=== PATIENT | female | born 1990 | race African-American/Black ===

== ENCOUNTER 2020-08-22 14:03 | Inpatient (IN) | payer MEDICAID ==
[~2020-08-22] VITALS: Ht 162.6 cm; Wt 115.2 kg
[2020-08-22] MEDS ORDERED: PREN1TAB78 MT (15:55)
[2020-08-22] MEDS ORDERED: FERR325T6 MT (15:55)
[2020-08-22] MEDS ORDERED: METHYLERGONOVINE MALEATE 0.2 MG/ML IM PRN (16:15)
[2020-08-22] MEDS ORDERED: CARBOPROST TROMETHAMINE 250 MCG/ML AMPUL IM PRN (16:15)
[2020-08-22] MEDS ORDERED: LIDOCAINE HCL 1% 20ML VIAL (Pyxis) INJ INFIL SCH (16:15)
[2020-08-22] MEDS ORDERED: NALOXONE HCL 0.4 MG/ML 1ML VIAL IM PRN (16:15)
[2020-08-22] MEDS ORDERED: BUTORPHANOL TARTRATE 2 MG/ML VIAL IV PRN (16:15)
[2020-08-22] MEDS ORDERED: AMPICILLIN 2GM in NS 100ML 100 ML IV SCH (16:30)
[2020-08-22] MEDS: LACTATED RINGERS 1,000 ML IV SCH (16:31)
[2020-08-22 16:34] LABS: BASOPHILS % 0.4 % (0.0-2.0); EOSINOPHILS % 1.1 % (0.0-5.0); HEMOGLOBIN. 12.4 g/dL (12.0-16.0); LYMPHOCYTES % 14.7 % (20.0-50.0); MEAN CORPUSCULAR HEMOGLOBIN 31.7 pg (28.0-32.0); MEAN CORPUSCULAR VOLUME 94.1 fL (81.0-99.0); MEAN PLATELET VOLUME 7.9 fl (7.4-10.4); MONOCYTES % 9.3 % (2.0-8.0); NEUTROPHILS % 74.5 % (40.0-76.0); PLATELET 465 x1000/uL (130-400); RED BLOOD CELL COUNT 3.93 mill/uL (4.2-5.4); RED CELL DISTRIBUTION WIDTH 13.8 % (11.6-14.6)
[2020-08-22 16:47] LABS: INR 0.9; PARTIAL THROMBOPLASTIN TIME 26.3 sec (23.4-31.0); PROTHROMBIN TIME 9.5 sec (9.6-11.0)
[2020-08-22 16:56] LABS: CLARITY URINE TURBID (CLEAR); COLOR URINE DARK YELLOW (YELLOW); KETONES URINE TRACE (NEGATIVE); LEUKOCYTE ESTERASE URINE 3+ (NEGATIVE); NITRITE URINE NEGATIVE (NEGATIVE); OCCULT BLOOD URINE 1+ (NEGATIVE); PROTEIN URINE 1+ (NEGATIVE); SPECIFIC GRAVITY URINE 1.031 (1.005-1.030); UROBILINOGEN URINE 0.2 E.U./dL (0.2-1.0)
[2020-08-22 17:17] LABS: HEPATITIS B SURFACE ANTIGEN NEGATIVE
[2020-08-22 17:32] LABS: *AMPHETAMINES SCREEN URINE NEGATIVE (NEGATIVE); *BARBITURATES SCREEN URINE NEGATIVE (NEGATIVE); *BENZODIAZEPINES SCREEN URINE NEGATIVE (NEGATIVE); *COCAINE SCREEN URINE NEGATIVE (NEGATIVE); METHADONE URINE SCREEN NEGATIVE (NEGATIVE); OPIATES URINE SCREEN NEGATIVE (NEGATIVE); PHENCYCLIDINE URINE SCREEN NEGATIVE (NEGATIVE)
[2020-08-22 17:33] LABS: CANNABINOID URINE SCREEN NEGATIVE (NEGATIVE)
[2020-08-22] MEDS: DEXT 5%/LR + PITOCIN 20UNITS/L 1,000 ML IV SCH (18:23)
[2020-08-23] MEDS: AMPICILLIN 1,000 MG in SODIUM CHLORIDE 0.9% 50 ML IV SCH ×5 (00:01→23:02)
[2020-08-23] MEDS: LACTATED RINGERS 1,000 ML IV SCH ×5 (06:19→23:03)
[2020-08-23] MEDS ORDERED: ROPIVACAINE HCL 2MG/ML (0.2%) 100ML BAG IR SCH (08:00)
[2020-08-23] MEDS ORDERED: ROPIVACAINE HCL/PF EPIDURAL 200 ML EPI ONE (08:27)
[2020-08-23] MEDS ORDERED: ROPIVACAINE HCL 2MG/ML (0.2%) 100ML BAG IR ONE (23:00)
[2020-08-23] MEDS ORDERED: ROPIVACAINE HCL/PF EPIDURAL 200 ML EPI NR (23:15)
[2020-08-23] MEDS ORDERED: ROPIVACAINE HCL/PF 0.2% (2MG/ML) EPID 200ML EPI SCH (23:30)
[2020-08-24] MEDS ORDERED: LIDOCAINE HCL/PF 2% 20MG/ML 5 ML/VIAL ONE ×2 (04:18→06:16)
[2020-08-24] MEDS ORDERED: AMPICILLIN 1,000 MG in SODIUM CHLORIDE 0.9% 50 ML IV SCH (05:00)
[2020-08-24] MEDS: LACTATED RINGERS 1,000 ML IV SCH (05:11)
[2020-08-24] MEDS ORDERED: NALOXONE HCL 0.4 MG/ML 1ML VIAL ONE (06:35)
[2020-08-24] MEDS ORDERED: ONDANSETRON HCL 4MG/2ML INJ ONE (06:49)
[2020-08-24] MEDS ORDERED: IBUPROFEN 800MG TABLET PO PRN (07:00)
[2020-08-24] MEDS ORDERED: ONDANSETRON HCL 4MG/2ML INJ IV PRN ×2 (07:00→07:15)
[2020-08-24] MEDS ORDERED: IBUPROFEN 400MG TABLET PO PRN (07:00)
[2020-08-24] MEDS ORDERED: DEXT 5%/LR + PITOCIN 20UNITS/L 1,000 ML IV SCH (07:00)
[2020-08-24] MEDS ORDERED: LANOLIN OINT 7GM TUBE TOP PRN (07:00)
[2020-08-24] MEDS ORDERED: ACETAMINOPHEN WITH CODEINE 300/30MG TABLET PO PRN (07:00)
[2020-08-24] MEDS ORDERED: HEMORRHOIDAL SUPP PR PRN (07:00)
[2020-08-24] MEDS ORDERED: HYDROMORPHONE HCL/PF 2MG/ML CPJ IV PRN ×2 (07:15→16:45)
[2020-08-24] MEDS ORDERED: HYDROMORPHONE HCL/PF 2MG/ML CPJ IV SCH (09:00)
[2020-08-24] MEDS: DEXT 5%/LR + PITOCIN 20UNITS/L 1,000 ML IV SCH ×2 (09:06→13:40)
[2020-08-24 10:05] VITALS: BP 127/71
[2020-08-24] MEDS ORDERED: MORPHINE SULFATE 4 MG/ML CPJ (NOT FOR IM USE) IV NR (12:30)
[2020-08-24] MEDS ORDERED: MORPHINE SULFATE 10 MG/ML CPJ IV SCH (13:00)
[2020-08-24 14:00] VITALS: BP 118/79
[2020-08-24 17:20] VITALS: BP 136/79
[2020-08-24] MEDS: KETOROLAC 30MG/ML VIAL IV SCH ×2 (17:22→22:41)
[2020-08-24 19:15] VITALS: BP 137/82
[2020-08-24] MEDS: PRENATAL VIT/FE FUMARATE/FA TABLET PO SCH (21:00)
[2020-08-24] MEDS: DOCUSATE SODIUM 100MG CAPSULE PO SCH (21:00)
[2020-08-24] MEDS: MAGNESIUM/ALUMINUM HYDROXIDE/SIMETHICONE 30ML UDC PO SCH (21:00)
[2020-08-24] MEDS: SIMETHICONE 80MG TABLET CHEW PO SCH (21:00)
[2020-08-24 22:38] VITALS: BP 137/85
[2020-08-25 04:00] VITALS: BP 135/83
[2020-08-25] MEDS: BISACODYL 10MG SUPP PR PRN ×2 (05:55→19:51)
[2020-08-25 06:50] LABS: BASOPHILS % 0.2 % (0.0-2.0); EOSINOPHILS % 0.5 % (0.0-5.0); HEMATOCRIT. 31.2 % (36.0-48.0); HEMOGLOBIN. 10.6 g/dL (12.0-16.0); LYMPHOCYTES % 10.8 % (20.0-50.0); MEAN CORPUSCULAR HEMOGLOBIN 32.1 pg (28.0-32.0); MEAN PLATELET VOLUME 7.3 fl (7.4-10.4); MONOCYTES % 8.5 % (2.0-8.0); PLATELET 334 x1000/uL (130-400); RED BLOOD CELL COUNT 3.31 mill/uL (4.2-5.4); RED CELL DISTRIBUTION WIDTH 13.5 % (11.6-14.6)
[2020-08-25 07:30] VITALS: BP 128/80
[2020-08-25] MEDS: SIMETHICONE 80MG TABLET CHEW PO SCH ×3 (08:00→17:32)
[2020-08-25] MEDS: FERROUS SULFATE 325MG TABLET PO SCH ×2 (13:40→17:31)
[2020-08-25] MEDS: HYDROCODONE/ACETAMINOPHEN 5/325MG TABLET PO PRN ×2 (13:42→19:49)
[2020-08-25 16:12] VITALS: BP 133/77
[2020-08-25] MEDS: MAGNESIUM/ALUMINUM HYDROXIDE/SIMETHICONE 30ML UDC PO SCH (17:31)
[2020-08-25] MEDS: DOCUSATE SODIUM 100MG CAPSULE PO SCH (19:48)
[2020-08-25 20:00] VITALS: BP 116/81
[2020-08-26] MEDS: HYDROCODONE/ACETAMINOPHEN 5/325MG TABLET PO PRN ×4 (00:12→15:14)
[2020-08-26] MEDS: SIMETHICONE 80MG TABLET CHEW PO SCH ×3 (00:14→18:37)
[2020-08-26] MEDS: MAGNESIUM/ALUMINUM HYDROXIDE/SIMETHICONE 30ML UDC PO SCH ×2 (00:14→18:37)
[2020-08-26 04:00] VITALS: BP 137/81
[2020-08-26] MEDS ORDERED: IBUP-2030 PO (06:22)
[2020-08-26] MEDS ORDERED: FLUCONAZOLE 150MG TABLET PO NR (06:30)
[2020-08-26 07:04] LABS: HEMATOCRIT 32.4 % (36.0-48.0); MEAN CORPUSCULAR VOLUME 93.8 fL (81.0-99.0); PLATELET 368 x1000/uL (130-400); RED BLOOD CELL COUNT 3.45 mill/uL (4.2-5.4); RED CELL DISTRIBUTION WIDTH 13.3 % (11.6-14.6)
[2020-08-26 09:50] VITALS: BP 129/72
[2020-08-26] MEDS: FERROUS SULFATE 325MG TABLET PO SCH ×2 (09:52→15:20)
[2020-08-26] MEDS: PRENATAL VIT/FE FUMARATE/FA TABLET PO SCH (09:52)
[2020-08-26 16:00] VITALS: BP 123/70
== END 2020-08-26 18:47 | disposition home or self-care (01) | DRG 540 ==
LOC: OBSVTOIN 14:03 → 8EST NSY 14:03 → 8 EST LDRP 14:20 → 8EST 08-24 10:02
PROVIDERS: ADMIT Obstetrics & Gynecology; ATTEND Obstetrics & Gynecology
PROC: 10D00Z1 Extraction of Products of Conception, Low, Open Approach (ICD-10-PCS; principal; 2020-08-24)
DX: O61.0 Failed medical induction of labor (principal); O62.2 Other uterine inertia; O76 Abnormality in fetal heart rate and rhythm complicating labor and delivery; O32.4XX0 Maternal care for high head at term, not applicable or unspecified; O99.214 Obesity complicating childbirth; D62 Acute posthemorrhagic anemia; D72.829 Elevated white blood cell count, unspecified; Z3A.38 38 weeks gestation of pregnancy; O99.03 Anemia complicating the puerperium; O99.13 Other diseases of the blood and blood-forming organs and certain disorders involving the immune mechanism complicating the puerperium; Z37.0 Single live birth
CPT/HCPCS: 36415; 76805; 76818; 80305; 81003; 85025; 85027; 86592; 86703; 86762; 86850; 86900; 87340; 88307; 99281; J0290; J0595; J1170; J1885; J2270; J2310; J2405; J2590; J2795; J3490; J7120; A4315